=== PATIENT | female | born 1950 | race Caucasian/White ===

== ENCOUNTER 2020-12-06 05:33 | Day surgery (SDC) | payer OTHER ==
[~2020-12-06] VITALS: Ht 167.6 cm; Wt 84.5 kg
--- NOTE | ~2020-12-06 | OP ---
PATIENT NAME: RENETTA MCMAHON MEDICAL RECORD: [id number] :54 LOCATION:[facility] ADMISSION DATE: SURGEON: LITO LENTZ MD DATE OF OPERATION: 12/06/2020 PREOPERATIVE DIAGNOSES: Lumbar spinal stenosis and foraminal stenosis, L4-L5, right. POSTOPERATIVE DIAGNOSES: Lumbar spinal stenosis and foraminal stenosis, L4-L5, right. PROCEDURE: Lumbar laminectomy, medial facetectomy, and foraminotomy, L4-L5 on the right. SURGEON: Lito Lentz MD DESCRIPTION OF PROCEDURE: After induction of general endotracheal anesthesia, the patient was rolled prone on a Lee frame. Lumbar spine was prepped and draped in usual sterile fashion. Fluoroscopic x-ray and spinal needle localized the L4-L5 interspace on the right side. A stab incision was created with #1-blade after infiltration with 1:100,000 epinephrine and 1% lidocaine. A Midas Hayder drill and microscope was used to perform a laminectomy, medial facetectomy, and foraminotomy L4-L5 on the right. Hypertrophied ligamentum flavum was removed with Cloward rongeurs. Following this, the L4 and L5 nerve roots were decompressed as well on the right side. Meticulous hemostasis was maintained throughout the wound. The wound was irrigated with copious amounts of Ancef irrigant solution. The retractor was removed. The fascia was closed with 2-0 Vicryl sutures. The subdermal layer was closed with 3-0 Vicryl sutures. The skin was closed with doron. A sterile dressing was applied to the wound. The patient was awakened in good condition and taken to recovery. All counts were reported as correct. ESTIMATED BLOOD LOSS: Minimal. TRANSINT:[id number] Voice Confirmation ID: [id number] DOCUMENT ID: [id number] LITO LENTZ MD CC: [id number] DICTATION DATE: 12/17/2050 LOG TUMBLER: 12/17/20 1206 [facility] 12/06/[address] [address]
[~2020-12-06 05:33] MED LIST: CYCLOBENZAPRINE10 MG PO; GABAPENTIN100 MG; HYDROCODON-ACE1 EA10 PO; PRAVACHOL40 MG PO; XANAX0.5 MG
[2020-12-06 06:05] LABS: HEMATOCRIT 42.9 % (36.0-48.0); LYMPHOCYTE ABS# 2.13 10x3/uL (1.18-3.74); MCH 31.2 pg (26.0-34.0); MCV 89.2 fL (80.0-100.0); MEAN PLATELET VOLUME 10.4 fL (7.4-10.4); NEUTROPHIL ABS# 1.31 10x3/uL (1.56-6.13); PLATELET COUNT 268 10x3/uL (130-400); RBC 4.81 10x6/uL (4.00-5.40); RDW 13.6 % (11.5-14.5); WBC 4.2 10x3/uL (4.8-10.8)
[2020-12-06 06:08] LABS: CALC OSMOLALITY 284 mosm/kg (275-300); CALCIUM 9.4 mg/dL (8.5-10.1); CARBON DIOXIDE 27.8 mmol/L (21.0-32.0); CHLORIDE - SERUM 103 mmol/L (98-107); CREATININE - SERUM 0.7 mg/dL (0.6-1.3); POTASSIUM - SERUM 3.4 mmol/L (3.5-5.1); SODIUM 141 mmol/L (136-145); UREA NITROGEN 14 mg/dL (7-18); eGFR NON AFRICAN AMERICAN 88 mL/min (90-120)
[2020-12-06 06:12] LABS: GLUCOSE 144 mg/dL (74-106)
[2020-12-06 06:23] VITALS: BP 160/91; Ht 167.6 cm; Wt 84.5 kg
--- NOTE | 2020-12-06 08:11 | NUR ---
PATIENT POSITIONED ON ON ROSE FRAME BREAST FREE FROM PRESSURE. PILLOWS UNDER LEGS AND KNEES.
[2020-12-06] MEDS ORDERED: HYDROCODON-ACE1 EA10 PO (09:00)
--- NOTE | 2020-12-06 09:12 | NUR ---
0859 - UPON ARRIVAL TO PACU, PT HAD WHAT APPEARED TO BE A FRESH SKIN TEAR TO A DARK RED AREA OF HER LEFT UPPER EXTREMITY. ASSISTANT IN NURSING CINDY CERDA RN WAS UNAWARE OF WHEN/HOW IT HAPPENED. PER ANESTHESIA STUDENT, WAS NOT THERE PRIOR TO MOVING TO STRETCHER AT END OF CASE. WOUND DRESSED WITH ADAPTIC AND 4X4S AND LIGHTLY WRAPPED SHAMEKA GIBBONS RN AND SARAH MARIN RN.
--- NOTE | 2020-12-06 09:40 | NUR ---
LEFT FOREARM BRUISIING, PER FEATHERER PT OBTAINED SKIN TEAR. COBAN CDI, CAP REFIL <3 SEC, RADIAL PULSE WNL LEFT SIDE OF LIPS- BLOOD BLISTER NOTED.
--- NOTE | 2020-12-06 10:10 | NUR ---
DC TEACHING DONE, PT VERBALIZES UNDERSTANDING
[2020-12-06 10:24] LABS: EOSINOPHILS 4 % (0-7); LYMPHOCYTES 51 % (15-50); MONOCYTES 11 % (2-11); NEUTROPHILS 33 % (40-80); PLATELET ESTIMATE NORMAL
--- NOTE | 2020-12-06 11:19 | NUR ---
O2 94 ON RA PAIN LEVEL 8, NORCO GIVEN UP TO BATHROOM, VOIDED IV REMOVED, CATH INTACT, PRESSURE HELD TO SITE DT SOME BLEEDING, REINFORCED WITH GAUZE AND COBAN. 1130 PT DC'D BY WC ACCOMPANIED BY THIS NURSE TO POV WITH PT FRIEND DRVING. IV SITE DRESSING CDI AT THIS TIME.
== END 2020-12-06 11:46 | disposition home or self-care (01) ==
LOC: D.OPS 05:33
PROVIDERS: Anesthesiology; ATTEND Neurological Surgery
DX: M48.061 Spinal stenosis, lumbar region without neurogenic claudication (principal); M54.16 Radiculopathy, lumbar region